=== PATIENT | male | born 1950 | race Caucasian/White ===

== ENCOUNTER 2019-08-25 09:27 | Inpatient (IN) | payer OTHER, MEDICARE ==
[~2019-08-25] VITALS: Ht 170.2 cm; Wt 51.7 kg
[2019-08-25] MEDS ORDERED: METHAMPHETAMINE (09:40)
[2019-08-25] MEDS ORDERED: SODIUM CHLORIDE 0.9% 1000ML 1,000 ML IV SCH (09:45)
[2019-08-25 09:47] LABS: BASOPHILS # (AUTO) 0.1 (0.0-0.1); BASOPHILS % 0.5 % (0.0-1.0); EOSINOPHILS # (AUTO) 0.1 (0.0-0.4); EOSINOPHILS % 0.5 % (0.0-6.0); HEMOGLOBIN 13.2 g/dL (14.0-18.0); LYMPHOCYTES # (AUTO) 0.9 (1.0-3.2); LYMPHOCYTES % 8.8 % (18.0-39.1); MEAN CORPUSCULAR HEMOGLOBIN 34.1 pg (28-32); MEAN CORPUSCULAR HGB CONC 34.7 g/dL (31-35); MEAN CORPUSCULAR VOLUME 98.2 fL (81-99); MONOCYTES # (AUTO) 0.5 (0.2-0.8); NEUTROPHILS # (AUTO) 8.3 (2.1-6.9); PLATELET COUNT 174 x10e3/uL (140-360); RED BLOOD COUNT 3.87 x10e6/uL (4.3-5.7); RED CELL DISTRIBUTION WIDTH 12.1 % (11.7-14.4)
[2019-08-25] MEDS ORDERED: KETOROLAC TROMETHAMINE 30 MG/ML VIAL IV ONE (10:00)
[2019-08-25 10:19] LABS: ALBUMIN 3.6 g/dL (3.5-5.0); ALBUMIN/GLOBULIN RATIO 1.1 (0.8-2.0); ANION GAP 14.3 mmol/L (8-16); CALCIUM 10.2 mg/dL (8.4-10.2); CREATININE, SERUM 1.33 mg/dL (0.72-1.25); POTASSIUM 4.3 mmol/L (3.5-5.1)
[2019-08-25] MEDS ORDERED: ONDANSETRON HCL INJ 2MG/ML 2ML 2 MG/ML VIAL IV ONE (10:30)
--- NOTE | 2019-08-25 11:02 | Diagnostic Imaging Report ---
EXAMINATION: CHEST SINGLE (PORTABLE) INDICATION: Flank pain COMPARISON: None FINDINGS: LINES/TUBES:EKG leads overlie the chest. LUNGS:The lungs are well-inflated. No focal consolidation or pulmonary edema. PLEURA:No pleural effusion or pneumothorax. MEDIASTINUM:The cardiomediastinal silhouette appears normal in size and shape. BONES/SOFT TISSUES:No acute osseous injury. ABDOMEN:No free air under the diaphragm. IMPRESSION: No focal pneumonia or pulmonary edema. Signed by: Harsha Silver MD on 08/25/2019 10:58 AM
--- NOTE | 2019-08-25 11:13 | Diagnostic Imaging Report ---
ADDENDUM #1 Impression #2 should read: Approximately 1 cm hypodense lesion at the superior segment 2 of the liver is indeterminate on this single phase noncontrast enhanced study. Signed by: Harsha Silver MD on 08/25/2019 11:31 AM The above findings were discussed with Dr. Langford on 08/25/2019 11:31 AM, who responded indicating that the communication was understood. ORIGINAL REPORT EXAM: CT Abdomen and Pelvis WITHOUT intravenous contrast INDICATION: Flank pain COMPARISON: Chest radiograph of the same day TECHNIQUE: Abdomen and pelvis were scanned utilizing a multidetector helical scanner from the lung base to the pubic symphysis without administration of IV contrast. Coronal and sagittal reformations were obtained. IV CONTRAST: None ORAL CONTRAST: Water COMPLICATIONS: None RADIATION DOSE: Total DLP: 167.9 mGy*cm Dose modulation, iterative reconstruction, and/or weight based adjustment of the mA/kV was utilized to reduce the radiation dose to as low as reasonably achievable. FINDINGS: LOWER THORAX: Hyperinflated lungs with centrilobular and paraseptal emphysema. HEPATOBILIARY: Approximately 1 cm hypodense lesion at the superior edge of segment 2 of the liver (series 3 image 10) is indeterminate. SPLEEN: No splenomegaly. PANCREAS: No focal masses or ductal dilatation. ADRENALS: No adrenal nodules. KIDNEYS/URETERS: There is moderate right hydronephrosis. 4.7 x 4.2 cm heterogeneous exophytic mass at the lower pole of the right kidney with scattered internal calcifications measuring up to 4 mm. Right lower pole renal calculus measuring 4 mm. Scattered 2 mm calculi at the right upper and mid pole. No left urinary calculi or left hydronephrosis. PELVIC ORGANS/BLADDER: Coarse internal calcifications in the prostate. PERITONEUM / RETROPERITONEUM: No free air or fluid. LYMPH NODES: No lymphadenopathy. VESSELS: Scattered atherosclerotic calcifications of the nonaneurysmal abdominal aorta and major branches. GI TRACT: No distention or wall thickening. BONES AND SOFT TISSUES: No acute osseous injury. No suspicious lytic or blastic lesions. IMPRESSION: Moderate right hydronephrosis. Scattered renal calculi on the right measuring up to 4 mm. 4.7 x 5.2 cm heterogeneous exophytic mass lesion at the lower pole the right kidney with scattered internal calcifications. Acute pyelonephritis could have this appearance, however underlying renal malignancy remains a concern. Approximately 1 7-m hypodense lesion at the superior segment 2 of the liver is indeterminate on this single phase noncontrast enhanced study. Emphysematous changes at the lung bases. Signed by: Harsha Silver MD on 08/25/2019 11:10 AM
[2019-08-25 12:03] LABS: BILIRUBIN,URINE NEGATIVE (NEGATIVE); CLARITY,URINE CLEAR (CLEAR); COLOR,URINE YELLOW (YELLOW); KETONES,URINE TRACE (NEGATIVE); LEUKOCYTE ESTERASE ,URINE NEGATIVE (NEGATIVE); NITRITE,URINE POSITIVE (NEGATIVE); PROTEIN,URINE DIPSTICK NEGATIVE (NEGATIVE); URINE UROBILINOGEN 0.2 mg/dL (0.2 - 1)
--- OUTSIDE RECORDS SUMMARY | 2019-08-25 12:30 | XMS REPORT ---
Author Author [facility] Address Unknown Phone Unavailable Care Team Providers Care Corn Husker Name Role Phone Miko MOSCOSO Unavailable Unavailable Problems This patient has no known problems. Allergies, Adverse Reactions, Alerts This patient has no known allergies or adverse reactions. Medications This patient has no known medications. Results Test Description Test Time Test Comments Text Results Atomic Results Result Comments CT ABDOMEN/PELVIS WO 2019-08-25 10:59:00 [place] [address] Patient Name: BRAXTON RODRIGEZ MR #: [id number] : 1950 Age/Sex: 68/M Req #: [id number] Adm Physician: Ordered by: JENELLE MOSCOSO MD Report #: [id number] Location: ER Room/Bed: Procedure: [id number] CT/CT ABDOMEN/PELVIS WO Exam Date: 08/25/19 Exam Time: 1036 REPORT STATUS: Signed ADDENDUM #1 Impression #2 miko clarke read: Approximately 1 cm hypodense lesion at the superior segment 2 of the liver is indeterminate on this single phase noncontrast enhanced study. Signed by: Juan Thacker MD on 08/25/2019 11:31 AM The above findings were discussed with Dr. Langford on 08/25/2019 11:31 AM, who responded indicating that the communication was understood. ORIGINAL REPORT EXAM: CT Abdomen and Pelvis WITHOUT intravenous contrast INDICATION: Flank pain COMPARISON: Chest radiograph of the same day TECHNIQUE: Abdomen and pelvis were scanned utilizing a multidetector helical scanner from the lung base to the pubic symphysis without administration of IV contrast. Coronal and sagittal reformations were obtained. IV CONTRAST: None ORAL CONTRAST: Water COMPLICATIONS: None RADIATION DOSE: Total DLP: 167.9 mGy*cm Dose modulation, iterative reconstruction, and/or weight based adjustment of the mA/kV was utilized to r educe the radiation dose to as low as reasonably achievable. FINDINGS: LOWER THORAX: Hyperinflated lungs with centrilobular and paraseptal emphysema. HEPATOBILIARY: Approximately 1 cm hypodense lesion at the superior edge of segment 2 of the liver (series 3 image 10) is indeterminate. SPLEEN: No splenomegaly. PANCREAS: No focal masses or ductal dilatation. ADRENALS: No adrenal nodules. KIDNEYS/URETERS: There is moderate right hydronephrosis. 4.7 x 4.2 cm heterogeneous exophytic mass at the lower pole of the right kidney with scattered internal calcifications measuring up to 4 mm. Right lower pole renal calculus measuring 4 mm. Scattered 2 mm calculi at the right upper and mid pole. No left urinary calculi or left hydronephrosis. PELVIC ORGANS/BLADDER: Coarse internal calcifications in the prostate. PERITONEUM / RETROPERITONEUM: No free air or fluid. LYMPH NODES: No lymphadenopathy. VESSELS: Scattered atherosclerotic calcifications of the nonaneurysmal abdominal aorta and major branches. GI TRACT: No distention or wall thickening. BONES AND SOFT TISSUES: No acute osseous injury. No suspicious lytic or blastic lesions. IMPRESSION: Moderate right hydronephrosis. Scattered renal calculi on the right measuring up to 4 mm. 4.7 x 5.2 cm heterogeneous exophytic mass lesion at the lower pole the right kidney with scattered internal calcifications. Acute pyelonephritis could have this appearance, however underlying renal malignancy remains a concern. Approximately 1 7-m hypodense lesion at the superior segment 2 of the liver is indeterminate on this single phase noncontrast enhanced study. Emphysematous changes at the lung bases. Signed by: Juan Thacker MD on 08/25/2019 11:10 AM Dictated By: JUAN THACKER MD 1131 Transcribed By: GRETA on 08/25/19 1110 COPY TO: JENELLE MOSCOSO MD CHEST SINGLE (PORTABLE) 2019-08-25 10:57:00 [place] [address] Patient Name: BRAXTON RODRIGEZ MR #: [id number] : 1950 Age/Sex: 68/M Req #: [id number] Adm Physician: Ordered by: JENELLE MOSCOSO MD Report #: [id number] Location: ER Room/Bed: Procedure: [id number] DX/CHEST SINGLE (PORTABLE) Exam Date: 08/25/19 Exam Time: 1041 REPORT STATUS: Signed EXAMINATION: CHEST SINGLE (PORTABLE) IND ICATION: Flank pain COMPARISON: None FINDINGS: LINES/TUBES:EKG leads overlie the chest. LUNGS:The lungs are well-inflated. No focal consolidation or pulmonary edema. PLEURA:No pleural effusion or pneumothorax. MEDIASTINUM:The cardiomediastinal silhouette appears normal in size and shape. BONES/SOFT TISSUES:No acute osseous injury. ABDOMEN:No free air under the diaphragm. IMPRESSION: No focal pneumonia or pulmonary edema. Signed by: Juan Thacker MD on 08/25/2019 10:58 AM Dictated By: JUAN THACKER MD 1058 Transcribed By: GRETA on 08/25/19 1058 COPY TO: EJNELLE MOSCOSO MD
[2019-08-25 12:53] LABS: BACTERIA,URINE FEW /HPF; RBC,URINE >50 /HPF (0-5); WBC,URINE (MAN) 0-5 /HPF (0-5)
[2019-08-25 12:54] LABS: AMMONIUM BIURATE CRYSTALS,UR MODERATE; EPITHELIAL CELLS,URINE FEW /LPF
[2019-08-25] MEDS: SODIUM CHLORIDE 0.9% 1000ML 1,000 ML IV SCH ×2 (12:55→23:30)
[2019-08-25 12:59] LABS: CREATINE KINASE 42 IU/L (30-200)
[2019-08-25] MEDS: CEFTRIAXONE SOD 1 GM/NS 50 ML 50 ML IV SCH (13:00)
[2019-08-25] MEDS ORDERED: MORPHINE SULFATE INJ 4 MG/ML INJ 1ML IV ONE (13:00)
[2019-08-25] MEDS ORDERED: ACETAMINOPHEN 325 MG TAB PO PRN (13:30)
--- NOTE | 2019-08-25 13:53 | NUR ---
Report to AIDEE Baumann
--- NOTE | 2019-08-25 14:57 | Progress Note ---
DATE: Internal Medicine Progress Note SUBJECTIVE: The patient is a 68-year-old male, who has a past medical history positive for no significant medical condition, came here with right flank pain. He was found to have pyelonephritis of the right kidney. The patient is admitted to the hospital. REVIEW OF SYSTEMS: CARDIOVASCULAR: No chest pain or palpitation. RESPIRATORY: No shortness of breath. No cough. GASTROINTESTINAL: No nausea. No vomiting. He does have right flank pain and epigastric pain. GENITOURINARY: No urinary frequency. No dysuria. No blood in the urine. ALLERGIES: NOT ALLERGIC TO ANYTHING. SOCIAL HISTORY: He smokes. He does not drink. PAST MEDICAL HISTORY: He denies any medical condition. PHYSICAL EXAMINATION: HEART: Showed regular rhythm. Normal S1, S2 sound. LUNGS: Clear bilaterally. ABDOMEN: Soft. EXTREMITIES: Show no evidence of cyanosis or hematoma. LABORATORY DATA: On the blood work, we have a CBC; white blood count 9.78, hemoglobin 13.2, hematocrit 38.0, platelet count 174,000. BMP with sodium 140, potassium 4.3, chloride 101, CO2 of 29, BUN 22, creatinine 1.33, GFR is 53, glucose 117, calcium 10.2, total bilirubin is 0.5, AST 27, ALT 18. Creatine kinase 42, CK-MB 1.50, troponin 0.001. Total protein 6.9, albumin 3.6, globulin 3.3. We also had a CT scan of the abdomen and pelvis done, which showed the following results: Right hydronephrosis, scattered renal calculi on the right measuring up to 4 mm. A 4.7 x 5.2 cm exophytic mass and a lesion on the lower pole of the right kidney with scattered internal calcification and acute pyelonephritis could have this appearance, however, underlying renal malignancy remains a concern. Approximately 1.7 mm hypodense lesion in the superior segment 2 of the liver is indeterminate in the single-phase noncontrast-enhanced. Emphysematous changes of the lung bases. IMPRESSION: 1. Right renal mass. 2. Questionable pyelonephritis. 3. Acute renal failure. 4. Hematuria. 5. Chronic obstructive pulmonary disease. 6. Right hydronephrosis. PLAN OF TREATMENT: We are going to continue the current IV antibiotic therapy. Urine culture has been sent. Continue Rocephin. Continue morphine. Continue Tylenol as needed. Consult Dr. Ayers for Urology. Liver ultrasound has been ordered. MD BOBBY Zarco/NANCI /[id number]
[2019-08-25 15:23] VITALS: BP 95/60
[2019-08-25 15:38] VITALS: BP 95/60
[2019-08-25] MEDS: ONDANSETRON HCL INJ 2MG/ML 2ML 2 MG/ML VIAL IV PRN ×2 (16:12→20:20)
[2019-08-25] MEDS: MORPHINE SULFATE INJ 4 MG/ML INJ 1ML IV PRN ×2 (16:12→20:20)
[2019-08-25 16:24] VITALS: BP 97/72
--- NOTE | 2019-08-25 16:26 | Diagnostic Imaging Report ---
EXAM: Right upper quadrant abdominal ultrasound INDICATION: Renal mass COMPARISON: Abdomen and pelvis CT of earlier the same day TECHNIQUE: Transverse and longitudinal images of the right upper quadrant abdomen were obtained FINDINGS: Liver: Size: 12.8 cm in the right midclavicular line, normal Appearance: Normal echogenicity, smooth contour Mass: Left hepatic cyst measuring 10 mm. No associated internal vascularity. Gallbladder: Small amount of sludge in the gallbladder. No gallbladder distension, pericholecystic fluid, wall thickening, stone, or reported sonographic Steiner's sign. Gallbladder wall measures 2 mm. Bile Ducts: Intrahepatic Ducts: No dilatation Extrahepatic Ducts: Common bile duct measures 3 mm. Pancreas: Visualized portions of the pancreatic head, neck and proximal body are normal. Kidney: The right kidney measures 11.0 cm. Mild right hydronephrosis. There is a complex mass arising from the lower pole of the right kidney measuring 4.7 x 6.2 x 3.4 cm with increased internal vascularity and both solid and cystic components. Vessels: Aorta: Visualized portions are normal Inferior Vena Cava: Visualized portions are normal Main Portal Vein: 0.7 cm, normal size with hepatopetal flow. Free Fluid: No ascites or pleural effusion IMPRESSION: Exophytic right lower pole renal mass measures 4.7 x 6.2 x 3.4 cm with increased internal vascularity and both cystic and solid components. Findings are concerning for renal malignancy. Mild right hydronephrosis. Small amount of sludge in the gallbladder. No sonographic evidence of cholelithiasis or cholecystitis. Signed by: Harsha Silver MD on 08/25/2019 4:22 PM
[2019-08-25 18:10] LABS: CREATINE KINASE 49 IU/L (30-200)
--- NOTE | 2019-08-25 18:28 | Consultation ---
DATE OF CONSULTATION: 08/25/2019 Urology Consultation REASON FOR CONSULTATION: Renal mass. HISTORY OF PRESENT ILLNESS: Dave Peng is a 68-year-old man who has had a previous history of prostatitis that was treated over 30 years ago. The patient has not followed up with the urologist many years. He has variable force of stream, sometimes slow, sometimes medium speed, and very rarely he has nocturia. The patient denies urinary incontinence or previous urolithiasis. The patient had severe abdominal pain in his periumbilical and then migrated over to the right side and the right flank. He denies hematuria or dysuria. Denies any previous urinary tract infections. He was evaluated in the emergency room and subsequently admitted. PAST MEDICAL AND SURGICAL HISTORY: 1. Migraines. 2. ADHD. 3. Status post vasectomy. ALLERGIES: NONE KNOWN. CURRENT MEDICATIONS: Please refer to the MAR. SOCIAL HISTORY: The patient is an everyday smoker and uses ethanol socially occasionally. Denies drug use. 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 FAMILY HISTORY: Significant for urolithiasis in the patient's son. REVIEW OF SYSTEMS: Discussed as above history of present illness and past medical history, otherwise negative for all systems. PHYSICAL EXAMINATION: GENERAL: Healthy-appearing 68-year-old male, lying in bed, in no apparent distress. VITAL SIGNS: He is currently afebrile. Vital signs currently stable. ABDOMEN: Soft, nondistended, nontender without costovertebral angle tenderness. Kidneys not palpable without hepatosplenomegaly. No obvious evidence of hernia. The patient was previously medicated. GENITOURINARY: Testes are descended bilaterally. Testes and epididymides bilaterally palpably normal. The patient has a normal circumcised male phallus with normal meatus without any lesion. There are vasectomy clips present and are nontender. LABORATORY STUDIES: The patient's creatinine is elevated at 1.33. His urinalysis significant for greater than 50 RBCs with moderate crystals and few bacteria. The patient is anemic with a hemoglobin 13.2. His white blood cell count is normal at 9.78. The platelets are normal at 174,000. CT scan of the abdomen and pelvis was done and it showed a moderate right hydronephrosis with scattered renal calculi measuring up to 4 mm and a 4.7 x 5.2 cm heterogeneous exophytic mass in the lower pole of right kidney. Liver ultrasound revealed mild right hydronephrosis and a complex mass in the lower pole of right kidney measuring 4.7 x 6.2 x 3.4 cm with cystic and solid components. ASSESSMENT: 1. Probable benign prostatic hypertrophy with symptomatology. 2. History of chronic prostatitis. 3. Right nephrolithiasis. 4. Right hydronephrosis. 5. Microhematuria. 6. Possible urinary tract infection. 7. Presumably acute renal failure. 8. Anemia. 9. Right renal mass. 10. Abdominal pains. PLAN: 1. We will recheck the patient's laboratory studies in the morning and determine whether his renal failure is acute. Hopefully, it will normalize. We will be able to get a CT renal mass protocol. 2. I have asked the nurses to strain all the urine. So, if the patient passes a stone, we will be able to send it to the lab for chemical analysis. 3. Ongoing urological followup is must. Thank you very much for involving us in care of your patient. We will be happy to follow along with you as well as an outpatient. Mike MD Armen OH/MODL /[id number] cc: Bob Easley
--- NOTE | 2019-08-25 19:15 | NUR ---
Patient visited in room during nursing rounds. Patient alert and oriented x3. No distress or discomfort noted. Pt on IVF (NS at 125ml/hr) and all urine being strained as per MD (Dr. Ayers) order. Pt ambulatory in room prn. Intermittent pain on right side to flank. Call pace within reach.
[2019-08-25 20:00] VITALS: BP 104/44
[2019-08-26] VITALS (9 sets, daily range): BP systolic 97–126; BP diastolic 41–66
[2019-08-26] MEDS: MORPHINE SULFATE INJ 4 MG/ML INJ 1ML IV PRN ×3 (03:15→20:15)
[2019-08-26] MEDS: ONDANSETRON HCL INJ 2MG/ML 2ML 2 MG/ML VIAL IV PRN ×2 (03:15→10:08)
[2019-08-26 08:39] LABS: BASOPHILS % 0.4 % (0.0-1.0); EOSINOPHILS # (AUTO) 0.2 (0.0-0.4); EOSINOPHILS % 2.6 % (0.0-6.0); HEMATOCRIT 34.9 % (38.2-49.6); HEMOGLOBIN 11.8 g/dL (14.0-18.0); LYMPHOCYTES # (AUTO) 1.5 (1.0-3.2); LYMPHOCYTES % 16.1 % (18.0-39.1); MEAN CORPUSCULAR HEMOGLOBIN 34.2 pg (28-32); MEAN CORPUSCULAR HGB CONC 33.8 g/dL (31-35); MEAN CORPUSCULAR VOLUME 101.2 fL (81-99); MONOCYTES # (AUTO) 0.9 (0.2-0.8); MONOCYTES % 9.8 % (4.4-11.3); NEUTROPHILS # (AUTO) 6.6 (2.1-6.9); NEUTROPHILS % 70.9 % (38.7-80.0); PLATELET COUNT 156 x10e3/uL (140-360); RED BLOOD COUNT 3.45 x10e6/uL (4.3-5.7); RED CELL DISTRIBUTION WIDTH 12.2 % (11.7-14.4)
[2019-08-26 08:53] LABS: ALANINE AMINOTRANSFERASE 14 IU/L (0-55); ALBUMIN 2.9 g/dL (3.5-5.0); ALBUMIN/GLOBULIN RATIO 1.1 (0.8-2.0); ALKALINE PHOSPHATASE 62 IU/L (40-150); ANION GAP 9.1 mmol/L (8-16); BLOOD UREA NITROGEN 19 mg/dL (7-26); BUN/CREATININE RATIO 19 (6-25); CALCIUM 8.4 mg/dL (8.4-10.2); CARBON DIOXIDE 26 mmol/L (22-29); CHLORIDE 107 mmol/L (98-107); CREATINE KINASE 49 IU/L (30-200); CREATININE, SERUM 0.99 mg/dL (0.72-1.25); EST GLOMERULAR FILTRATION RATE > 60 ML/MIN (60-); GLUCOSE 94 mg/dL (74-118); POTASSIUM 4.1 mmol/L (3.5-5.1); SODIUM 138 mmol/L (136-145)
[2019-08-26] MEDS: [UNRECOGNIZED DRUG - OTHER] PO SCH (09:00)
[2019-08-26] MEDS: SODIUM CHLORIDE 0.9% 1000ML 1,000 ML IV SCH ×3 (09:55→20:17)
[2019-08-26] MEDS: CEFTRIAXONE SOD 1 GM/NS 50 ML 50 ML IV SCH (13:13)
--- NOTE | 2019-08-26 15:45 | NUR ---
Visit made by the Spiritual Care Department Pastoral Visitor, Carolyn Valencia. PV provided pastoral presence, prayer, hospitality, and supportive listening. Pastoral Visitor informed pt/family of the scope of Human Service Worker Services and availability. UBALDO ALEMAN Insulation Worker Spiritual Care Department O: [phone] Pager: [phone] ([phone] number calling from)
--- NOTE | 2019-08-26 16:47 | Progress Note ---
DATE: Internal Medicine Progress Note SUBJECTIVE: The patient is doing well. PHYSICAL EXAMINATION: VITAL SIGNS: Blood pressure 109/53, temperature 39.4, heart rate 61 per minute, respiratory rate 17 per minute, oxygen saturation 96%. HEART: Regular rhythm. Normal S1, S2 sound. LUNGS: Clear bilaterally. ABDOMEN: Soft. EXTREMITIES: Mild tenderness of the right flank. LABORATORY DATA: On the BMP; sodium 140, potassium 4.3, chloride 101, CO2 of 29, BUN 22, creatinine 1.33, glucose 117. On the CBC; white blood count 9.78, hemoglobin 13.2, hematocrit 38.0, platelet count 174,000. AST 27, ALT 18, total bilirubin 0.5, alkaline phosphatase 65. FINAL IMPRESSION: 1. Questionable pyelonephritis. 2. Right renal mass. 3. Acute renal failure. 4. Hematuria. 5. Chronic obstructive pulmonary disease. 6. Right hydronephrosis. PLAN OF TREATMENT: The patient is going to have a repeat CT of the abdomen with contrast. BUN and creatinine are back to normal. Dr. Ayers has been consulted from the Neurology point of view. Continue Rocephin 2 g IV once a day, IV fluids continue at 125 mL an hour, morphine 4 mg IV q.4 hours as needed, Zofran 4 mg IV q.4 hours as needed, Tylenol 325 mg q.4 hours. MD BOBBY Zarco/NANCI /[id number]
--- NOTE | 2019-08-26 17:13 | Diagnostic Imaging Report ---
Exam: CT abdomen and pelvis Clinical history: Renal mass next Comparison: CT abdomen and pelvis, August 25, 2019 Technique: Helical images of the abdomen and pelvis were obtained before and after IV contrast administration using the renal mass protocol DOSE REDUCTION: The exams was performed according to the departmental dose-optimization program which includes automated exposure control, adjustment of the mA and/or kV according to patient size and/or use of iterative reconstruction technique. Findings: Emphysematous changes of the lung bases are again noted with scarring. There is no evidence of pleural effusion. The cardiac size is within normal limits. The previously seen hypodense lesion in the segment 2 liver measuring 9 mm is again noted. This nonenhancing and most compatible with a simple cyst. The spleen, pancreas, adrenal glands, and left kidney are unremarkable. The gallbladder is contracted and not well seen. In inferior pole right kidney, a 3.3 x 4.9 cm exophytic heterogeneously enhancing mass is noted worrisome for neoplasm. It is difficult to distinguish a fat plane between the mass and the adjacent paraspinal muscle. There is no evidence of tumor thrombus in the renal vein or IVC. No evidence of lymphadenopathy is noted. A 2.2 cm hypodense lesion is also noted in the upper pole right kidney most compatible with a cyst. The small and large bowels are normal in caliber without evidence of obstruction. Retained feces are noted throughout the colon. The bladder, prostate, and seminal vesicles are unremarkable. There is no evidence of free fluid. The aorta and IVC are normal in caliber. No suspicious osteoblastic or lytic lesions are noted in the visualized osseous structures. Impression: 1. Right inferior pole renal mass as described worrisome for neoplasm. 2. Bilateral emphysematous changes of the lungs. 3. The previously seen hypodense lesion in the segment 2 liver is most compatible with a cyst. Signed by: Dr. Donny Gamboa MD on 08/26/2019 5:09 PM
[2019-08-26] MEDS ORDERED: IOPAMIDOL 370 MG/ML 200 ML INFUS..BTL INJ ONE (19:05)
[2019-08-26] MEDS ORDERED: SODIUM CHLORIDE 0.9% 50ML 50 ML ONE (19:05)
[2019-08-27] VITALS (8 sets, daily range): BP systolic 109–125; BP diastolic 46–59
[2019-08-27] MEDS: SODIUM CHLORIDE 0.9% 1000ML 1,000 ML IV SCH ×2 (05:00→12:23)
[2019-08-27] MEDS: [UNRECOGNIZED DRUG - OTHER] PO SCH (09:00)
[2019-08-27] MEDS: CEFTRIAXONE SOD 1 GM/NS 50 ML 50 ML IV SCH (12:23)
[2019-08-27] MEDS ORDERED: ALBUTEROL SULF 0.083% NEB SOLN 3 ML NEB NEB PRN (14:45)
[2019-08-27] MEDS ORDERED: LACTULOSE SYRUP 20 GM/30 ML UDC PO PRN (14:45)
--- NOTE | 2019-08-27 15:50 | NUR ---
Nutrition Intervention Note RD Recommendation(s) for Physician: - Continue current diet - Recommend Ensure Compact TID Plan of Care: RD following, monitoring for tolerance and adequacy Nutrition reason for involvement: Nutrition Risk Trigger- MST5 RD Assessment 08/27: 68 YOM admitted for R renal mass and UTI with no PMH per MD notes. Pt discussed during am rounds. Pt seen today per MST screen. Pt reports progressive wt loss of 9 lb over the past year and fluctuating po intake 2/2 changes in work shifts and being very busy at work. Pt reports eating 100% of meals currently and good appetite. Pt denies any GI distress. Pt reports that he drinks Boost at home, receptive to Ensure Compact. Will monitor and continue to follow. Principal Problems/Diagnoses: R renal mass, UTI, COPD, R hydronephrosis PMH: No PMH per H&P GI: LBM 08/26 Skin: intact Labs: 08/26: Na 138, K 4.1, BUN 19. Cr 0.99, Gluc 94 Meds: abx, morphine, zofran Ht: 67 in Wt: 114 lb BMI: 17.9 IBW: 148 lb Malnutrition Evaluation (08/27) The patient meets criteria for mild protein calorie malnutrition Energy intake: <75% of estimated energy requirements for >7 days Weight loss: Mild Pt reports possible 9lb wt loss in the past year, 7% change Fat loss: Mild, arm skinfold thickness Muscle loss: Mild, clavicle visible Supporting Evidence: Fluid accumulation: none Functional Status: no changes Nutrition Prescription (Diet Order): Cardiac Estimated Nutritional Needs: 1378-8286 calories/day (30-35 kcal/kg CBW) 67-103 g protein/day (1.3-2 g pro/kg CBW) Diet Adequacy: Meeting calorie needs, Meeting protein needs- per current intake Diet Tolerance: Tolerating PO Diet Education Needs Assessment: Diet education not indicated at this time Nutrition Care Level: Mod Nutrition Diagnosis: Inadequate energy and protein intake related to job related constraints and adjustments as evidenced by fluctuating po intake and mild wt loss Goal: Patient will meet 75-100% of estimated needs by follow up Progress: N/A Interventions: fat, mineral modified diet, Commercial beverage, Collaboration with other providers Monitoring/Evaluation: Total energy intake, Total protein intake, Modified diet, Liquid supplement, Weight change Signed: Jeannie Cosme RD, LD, [facility]
--- NOTE | 2019-08-27 15:56 | NUR ---
dr. perez notified of new consult, no new orders
[2019-08-27] MEDS: LUBIPROSTONE 24 MCG CAP PO SCH (16:31)
--- NOTE | 2019-08-27 17:09 | Progress Note ---
DATE: Internal Medicine Progress Note SUBJECTIVE: The patient is complaining of constipation. No other symptoms. OBJECTIVE: VITAL SIGNS: Blood pressure 116/59, temperature 96.9, heart rate 66 per minute, respiratory rate 18 per minute, and O2 saturation 95%. ABDOMEN: Soft, nontender. No distention. No visceromegaly. LABORATORY DATA: On the blood work, we have a sodium 138, potassium 4.1, chloride 107, CO2 26, BUN 19, creatinine 0.99, glucose 94. On the CBC; white blood count 9.35, hemoglobin 11.8, hematocrit 34.9, platelet count 156,000. AST 17, ALT 14, total bilirubin 0.4, alkaline phosphatase 62. IMPRESSION: 1. Right renal mass. 2. Hydronephrosis. 3. Chronic obstructive pulmonary disease. 4. Chronic prostatitis. 5. Kidney stones. 6. Acute renal failure, which is resolving. 7. Benign prostatic hypertrophy. 8. Anemia. PLAN OF TREATMENT: 1. Continue ceftriaxone 2 g IV daily. 2. Continue with morphine 4 mg IV q.4 hours as needed. 3. Continue Zofran 4 mg IV q.4 hours as needed. 4. Tylenol 325 mg q.4 hours. 5. We are going to also start the patient on Amitiza 24 mcg p.o. twice a day and lactulose 20 g q.6 hours as needed for constipation. We are waiting on the decision of Dr. Mike Ayers, urologist, to see the patient. 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 MD BOBBY Zarco/NANCI /[id number]
[2019-08-27] MEDS: MORPHINE SULFATE INJ 4 MG/ML INJ 1ML IV PRN (19:20)
[2019-08-27] MEDS: ONDANSETRON HCL INJ 2MG/ML 2ML 2 MG/ML VIAL IV PRN (19:20)
--- NOTE | 2019-08-27 19:21 | NUR ---
Received bedside report from day nurse. Patient resting in bed, no s/s of distress at this time. All safety measures in place. Will continue to monitor.
--- NOTE | 2019-08-27 20:44 | NUR ---
Per Dr. Figueroa patient is cleared from pulmonary standpoint if urology decides on surgery.
[2019-08-28] VITALS: BP 115/52
--- NOTE | 2019-08-28 00:11 | Consultation ---
DATE OF CONSULTATION: 08/27/2019 Pulmonary Medicine Consult REASON FOR REFERRAL: Preoperative evaluation, lung issues. HISTORY OF PRESENT ILLNESS: Mr. Peng is a pleasant 68-year-old gentleman with preoperative evaluation. The patient was admitted to [facility] on August 25, 2019. The patient had abdominal pain at that time. The patient had elevated creatinine as well as an abdominal/pelvic CT chest that were abnormal. Abdominal/pelvic CT demonstrated a renal mass with moderate hydronephrosis and possible additional 1 cm liver nodule, NOS. The patient was admitted at that time and given antibiotics and treated for urinary sepsis as well as the acute kidney injury. Creatinine has improved at 0.9 after aggressive and excellent treatment program per Dr. Wilkinson and the urologist. The patient is tentatively being prepared for surgery given the obstructive uropathy. No history of asthma. No allergies. No GERD. No sleep apnea history. The patient chronically smokes. He is very active in his job and he is above and beyond able to perform compared to his peers. Medications include Adderall 20 mg twice a day for ADHD, but he only uses this for work days and not for non-work days. He has migraines for which he is on . He has never tried inhalers for his lungs. PAST MEDICAL HISTORY: Migraines, ADHD, history of vasectomy. MEDICATIONS: Medication list reviewed per the chart record. ALLERGIES: NO KNOWN DRUG ALLERGIES. SOCIAL HISTORY: No drugs. Former alcohol, but he quit in 1986, he smoked from age 21 to 68, one pack per day. 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 He currently lives alone as his is very ill and his is living with her mother, who is helping take care of her when the patient is at work. FAMILY HISTORY: Noncontributory to this process. REVIEW OF SYSTEMS: GENERAL: No weight changes. OPHTHALMOLOGIC: No double vision. ENT: No tinnitus. ENDOCRINE: No known thyroid disease. PULMONARY: No hemoptysis. CARDIAC: No heart attack. GI: No diarrhea. DERMATOLOGIC: No rash. PSYCHIATRIC: No depression. NEUROLOGIC: No seizures. OBJECTIVE: VITAL SIGNS: Afebrile, vital signs noted, reviewed per the chart record. GENERAL: In no acute distress. Alert and calm. HEENT: Normocephalic, atraumatic. NECK: Supple. Throat midline. LUNGS: Bilateral air entry is moderate, is mildly decreased. CARDIOVASCULAR: S1 and S2. No murmurs, rubs, or gallops. ABDOMEN: Soft, nontender. EXTREMITIES: No clubbing. No cyanosis. There is no edema. INTEGUMENT: No rash or purpura. LABORATORY DATA: Reviewed per the chart record. Chest x-ray with clear lungs. IMPRESSION AND PLAN: 1. Preoperative pulmonary assessment, expectant surgery. 2. Chronic smoker. 3. Decreased air entry, chronic obstructive pulmonary disease suspected. The patient has an excellent exertional capacity, though. 4. Former alcohol, but quit in 1986. 5. History of renal mass, associated hydronephrosis. 6. 1 cm liver lesion, NOS. 7. Attention-deficit hyperactivity disorder. 8. Migraines. The patient with excellent endurance and stays very active. From a Pulmonary point of view, it is reasonable for him to undergo the planned genitourinary surgery with small pulmonary risk for postoperative complications. Smoking cessation was highly recommended to him. I did recommend outpatient PFTs and consideration for alpha-1 antitrypsin testing as outpatient. Perioperative management will be recommended to minimize complication risks. Thank you very much, Dr. Wilkinson for allowing me a chance to participate in the care of Mr. Peng. Please call for any questions. MD SALEEM Mckeon/NANCI /[id number]
--- NOTE | 2019-08-28 04:07 | NUR ---
Patient refusing telemetry. Educated patient on cardiac monitoring. Patient states, "I do not have heart problems, I'm not wearing that." Will let Dr. Wilkinson aware. Addendum: 08/28/19 at 0409 by Sima Sorto RN Will make Dr. Wilkinson aware.
[2019-08-28 04:35] VITALS: BP 107/48
[2019-08-28] MEDS ORDERED: TIOTROPIUM 18 MCG INH POWDER INH SCH (06:00)
--- NOTE | 2019-08-28 07:00 | NUR ---
RCD PT AT BED PT IS ALERT AND ORIENTED PT RESTING ON BED NO SIGNS OF ANY DISTRESS NOTED IV PATENT BED LOW AND LOCKED CALL LIGHT IN REACH
[2019-08-28 08:00] VITALS: BP 127/60
[2019-08-28] MEDS: LUBIPROSTONE 24 MCG CAP PO SCH ×2 (08:00→16:43)
[2019-08-28 08:50] VITALS: BP 127/60
[2019-08-28] MEDS: [UNRECOGNIZED DRUG - OTHER] PO SCH (09:00)
--- NOTE | 2019-08-28 11:54 | NUR ---
PULMONARY MEDICINE DATE 08/28/2019 Pulmonary Medicine Consult SUBJECTIVE: Patient with steady breathing. walking, no dizziness eats ok REVIEW OF SYSTEMS: no bleeding, no rash OBJECTIVE: VITAL SIGNS: vital signs noted, reviewed per the chart record. GENERAL: In no acute distress. Alert and calm. HEENT: Normocephalic, atraumatic. NECK: Supple. Throat midline. LUNGS: Bilateral air entry is moderate, mildly decreased. CARDIOVASCULAR: S1 and S2. No murmurs, rubs, or gallops. ABDOMEN: Soft, nontender. EXTREMITIES: No clubbing. No cyanosis. There is no edema. INTEGUMENT: No rash or purpura. LABORATORY DATA: no new updates IMPRESSION AND PLAN: 1. Preoperative pulmonary assessment, expectant for laparotomy / surgery. 2. Chronic smoker. 3. Decreased air entry on lung auscultation --chronic obstructive pulmonary disease suspected. The patient has an excellent functional capacity. 4. Former alcohol, but quit in 1986. 5. Hx renal mass, associated hydronephrosis. 6. 1 cm liver lesion, NOS. 7. Attention-deficit hyperactivity disorder. 8. Migraines. From a Pulmonary point of view, it is reasonable for him to undergo the planned genitourinary surgery with small pulmonary risk for postoperative complications. Smoking cessation was highly recommended to him. I do recommend outpatient PFTs and consideration for alpha-1 antitrypsin testing Perioperative management to minimize complication risks is recommended. Thank you very much, Dr. Wilkinson for allowing me a chance to participate in the care of Mr. Peng. Please call for any questions.
[2019-08-28 12:00] VITALS: BP 110/53
[2019-08-28] MEDS: CEFTRIAXONE SOD 1 GM/NS 50 ML 50 ML IV SCH (12:30)
[2019-08-28 16:00] VITALS: BP 117/52
--- NOTE | 2019-08-28 16:00 | NUR ---
PT REQUESTED TO WORK EXCUSE PAGED DR PEDRO HE SAID CALL HIS OFFICE ON TOMORROW
--- NOTE | 2019-08-28 16:56 | NUR ---
PT WENT HOME IN SAFE CONDITION WITH HIS SON
--- NOTE | 2019-08-28 17:21 | Discharge Summary ---
HOSPITAL COURSE: The patient is a 68-year-old male, who has a past medical history positive for smoking, COPD, came here with right flank pain. He was found to have right renal mass with right hydronephrosis. Urinalysis showed no leukocytes and some contamination with Staphylococcus also. No evidence of any fever. White blood count is normal. The patient was seen by Dr. Ayers, Urology, who recommended to have an outpatient partial nephrectomy. The patient is aware of that. He is going to follow up with Dr. Ayers in a couple of weeks. Also, we will consult Dr. Walter Figueroa of pulmonary because of history of COPD and smoking. PHYSICAL EXAMINATION: VITAL SIGNS: Blood pressure 127/60, temperature 97.2, heart rate 71 per minute, respiratory rate 18 per minute, oxygen saturation 97%. HEART: Showed regular rhythm. Normal S1, S2 sound. LUNGS: Clear bilaterally. LABORATORY DATA: On the BMP; sodium 138, potassium 4.1, chloride 107, CO2 26, BUN 19, creatinine 0.99, glucose 94. On the CBC; white blood count 9.35, hemoglobin 11.8, hematocrit 34.9, platelet count 156,000. AST 17, ALT 14, total bilirubin 0.4, alkaline phosphatase 62. FINAL IMPRESSION: 1. Right renal mass. 2. Acute renal failure, which is completely resolved. 3. Micro hematuria. 4. Chronic obstructive pulmonary disease. 5. Right hydronephrosis. PLAN OF TREATMENT: The patient will follow up with Dr. Ayers as an outpatient for a partial nephrectomy and also follow up with Dr. Figueroa, quality control engineer for a preop clearance prior to surgery. MD BOBBY Zarco/NANCI /[id number]
--- NOTE | 2019-08-28 17:26 | Discharge Summary ---
The patient also will get education on how to quit smoking. MD BOBBY Zarco/NANCI /[id number]
== END 2019-08-28 16:56 | disposition home or self-care (01) | DRG 700 ==
LOC: ER 09:27 → ERHOLD 12:17 → MED/SURG2 14:34
PROVIDERS: ADMIT Internal Medicine; ATTEND Internal Medicine
DX: N28.89 Other specified disorders of kidney and ureter (principal); N40.1 Benign prostatic hyperplasia with lower urinary tract symptoms; N13.2 Hydronephrosis with renal and ureteral calculous obstruction; R31.29 Other microscopic hematuria; N39.0 Urinary tract infection, site not specified; N17.9 Acute kidney failure, unspecified; D64.9 Anemia, unspecified; J44.9 Chronic obstructive pulmonary disease, unspecified; N41.1 Chronic prostatitis; F17.210 Nicotine dependence, cigarettes, uncomplicated; F10.21 Alcohol dependence, in remission; K76.9 Liver disease, unspecified; F90.9 Attention-deficit hyperactivity disorder, unspecified type; G43.909 Migraine, unspecified, not intractable, without status migrainosus; K59.00 Constipation, unspecified
CPT/HCPCS: 36415; 71045; 74176; 74178; 76705; 80053; 81001; 82550; 82553; 84484; 85025; 87086; 87186; 96361; 99284; J0696; J1885; J2270; J2405; J7030; Q9967